=== PATIENT | female | born 1970 | race Caucasian/White ===

== ENCOUNTER 2018-03-11 11:02 | Emergency (ER) | payer OTHER ==
[2018-03-11] MEDS ORDERED: PREDNISONE 20 MG TABLET PO ONE (11:39)
[2018-03-11] MEDS ORDERED: IPRATROPIUM/ALBUTEROL 0.5-2.5 MG/3 ML AMPUL NEB ONE (11:39)
[2018-03-11] MEDS ORDERED: ONDANSETRON 4 MG TAB.RAPDIS PO ONE (11:48)
[2018-03-11] MEDS ORDERED: PROCHLORPERAZINE MALEATE 10 MG TABLET PO ONE (11:48)
[2018-03-11] MEDS ORDERED: IBUPROFEN 600 MG TABLET PO ONE (11:49)
[2018-03-11 12:08] LABS: ABSOLUTE EOSINOPHILS # (AUTO) 0.1 10^3/uL (0.0-0.6); ABSOLUTE LYMPHOCYTES (AUTO) 1.1 10^3/uL (0.5-4.7); ABSOLUTE MONOCYTES (AUTO) 0.5 10^3/uL (0.1-1.4); ABSOLUTE NEUT (AUTO) 3.4 10^3/uL (1.7-8.2); BASOPHILS % (AUTO) 0.7 % (0-2); EOSINOPHILS % (AUTO) 1.1 % (0-6); HEMATOCRIT 44.4 % (36.0-47.0); HEMOGLOBIN 15.5 g/dL (12.0-15.5); LYMPHOCYTES % (AUTO) 21.6 % (13-45); MEAN CORPUSCULAR HEMOGLOBIN 34.7 pg (27.0-33.4); MEAN CORPUSCULAR HGB CONC 34.8 g/dL (32.0-36.0); MEAN CORPUSCULAR VOLUME 100 fl (80-97); MONOCYTES % (AUTO) 9.6 % (3-13); PLATELET COUNT 232 10^3/uL (150-450); RED BLOOD COUNT 4.46 10^6/uL (3.72-5.28); RED CELL DISTRIBUTION WIDTH 14.4 % (11.5-14.0); TOTAL CELLS COUNTED % (AUTO) 100 %
[2018-03-11 12:28] LABS: ANION GAP 11 (5-19); BLOOD UREA NITROGEN 12 mg/dL (7-20); CARBON DIOXIDE 28 mmol/L (22-30); CHLORIDE 103 mmol/L (98-107); GLUCOSE 87 mg/dL (75-110); POTASSIUM 4.7 mmol/L (3.6-5.0); SODIUM 141.9 mmol/L (137-145)
--- NOTE | 2018-03-11 13:03 | RADIOLOGY REPORT (SQ) ---
EXAM DESCRIPTION: CHEST 2 VIEWS COMPLETED DATE/TIME: 03/11/2018 12:51 pm REASON FOR STUDY: sob COMPARISON: None. EXAM PARAMETERS: NUMBER OF VIEWS: two views TECHNIQUE: Digital Frontal and Lateral radiographic views of the chest acquired. RADIATION DOSE: NA LIMITATIONS: none FINDINGS: LUNGS AND PLEURA: No opacities, masses or pneumothorax. No pleural effusion. MEDIASTINUM AND HILAR STRUCTURES: No masses or contour abnormalities. HEART AND VASCULAR STRUCTURES: Heart normal size. No evidence for failure. BONES: No acute findings. HARDWARE: None in the chest. OTHER: No other significant finding. IMPRESSION: NO ACUTE RADIOGRAPHIC FINDING IN THE CHEST. TECHNICAL DOCUMENTATION: JOB ID: [id number] [employer]- All Rights Reserved Reading location - IP/workstation name: [email or web address]
[2018-03-11] MEDS ORDERED: ALBUTEROL SULFATE HFA (90 MCG/PUFF) 8 GM MDI (1 MDI/ER DISP) IH ONE (13:06)
[2018-03-11] MEDS ORDERED: AZITHROMYCIN 250 MG TABLET PO ONE (13:06)
--- NOTE | 2018-03-11 13:08 | ER Document Report ---
ED General - General Chief Complaint: Chest Pain Stated Complaint: CHEST PAIN Time Seen by Provider: 03/11/18 11:32 TRAVEL OUTSIDE OF THE [place] IN LAST 30 DAYS: No - HPI Patient complains to provider of: Right-sided chest pain Notes: Patient coming in for right-sided chest pain shortness of breath cough sputum production is yellow ongoing for last few days. Patient is a smoker. Patient denies any recent travel denies any fevers chills nausea vomiting. Patient denies any cardiac history. Patient resting company upon my evaluation. No recent antibiotics - Related Data Allergies/Adverse Reactions: No Known Allergies Allergy (Verified 03/11/18 11:31) Past Medical History - Social History Smoking Status: Current Every Day Smoker Chew tobacco use (# tins/day): No Frequency of alcohol use: Social Drug Abuse: None Family History: Reviewed & Not Pertinent Patient has suicidal ideation: No Patient has homicidal ideation: No Renal/ Medical History: Denies: Hx Peritoneal Dialysis Review of Systems - Review of Systems Constitutional: No symptoms reported EENT: No symptoms reported Cardiovascular: Chest pain Respiratory: Cough, Short of breath, Sputum, Wheezing Gastrointestinal: No symptoms reported Genitourinary: No symptoms reported Female Genitourinary: No symptoms reported Musculoskeletal: No symptoms reported Skin: No symptoms reported Hematologic/Lymphatic: No symptoms reported Neurological/Psychological: No symptoms reported -: Yes All other systems reviewed and negative Physical Exam - Vital signs Vitals: Temp Pulse Resp BP Pulse Ox 98.8 F 89 18 153/105 H 97 03/11/18 11:26 03/11/18 11:26 03/11/18 11:26 03/11/18 11:26 03/11/18 11:26 Interpretation: Normal - General General appearance: Appears well, Alert - HEENT Head: Normocephalic, Atraumatic Eyes: Normal Pupils: PERRL - Respiratory Respiratory status: No respiratory distress Chest status: Nontender Breath sounds: Rhonchi, Wheezing Chest palpation: Purulent sputum - Cardiovascular Rhythm: Regular Heart sounds: Normal auscultation Murmur: No - Abdominal Inspection: Normal Distension: No distension Bowel sounds: Normal Tenderness: Nontender Organomegaly: No organomegaly - Back Back: Normal, Nontender - Extremities General upper extremity: Normal inspection, Nontender, Normal color, Normal ROM , Normal temperature General lower extremity: Normal inspection, Nontender, Normal color, Normal ROM , Normal temperature, Normal weight bearing. No: Yesenia's sign - Neurological Neuro grossly intact: Yes Cognition: Normal Orientation: AAOx4 Connie Coma Scale Eye Opening: Spontaneous Connie Coma Scale Verbal: Oriented [place] Coma Scale Motor: Obeys Commands [place] Coma Scale Total: 15 Speech: Normal Motor strength normal: LUE, RUE, LLE, RLE Sensory: Normal - Psychological Associated symptoms: Normal affect, Normal mood - Skin Skin Temperature: Warm Skin Moisture: Dry Skin Color: Normal Course - Re-evaluation Re-evalutation: 03/11/18 20:18 Chest x-ray does not show any signs of pneumonia however concerned about underlying bronchitis we will start the patient on azithromycin as she does have a change in her sputum production along with bronchodilator therapy and steroids. Patient states understanding feeling better after breathing treatments here discharged home - Vital Signs Vital signs: Temp Pulse Resp BP Pulse Ox 97.6 F 69 18 161/102 H 99 03/11/18 13:30 03/11/18 13:30 03/11/18 11:26 03/11/18 13:30 03/11/18 13:30 - Laboratory Result Diagrams: 03/11/18 11:46 03/11/18 11:46 Laboratory results interpreted by me: 03/11/18 03/11/18 11:46 11:46 MCV 100 H MCH 34.7 H RDW 14.4 H Est GFR (Non-Af Amer) 59 L Discharge - Discharge Clinical Impression: Bronchitis Condition: Good Disposition: HOME, SELF-CARE Instructions: Bronchitis ([facility]) Additional Instructions: Examination today is consistent with a bronchitis. Chest x-ray does not show any signs of pneumonia. We will treat him symptoms with a bronchodilator call albuterol. Please use the inhaler that we gave you here in ER 2 puffs every 4 hours for the next 5 days. He would also need to be placed on steroids. Please take as directed. Because of the productive cough we will start you on antibiotic called azithromycin. Please take as directed. Please stop smoking Prescriptions: Albuterol Sulfate [Proair HFA Inhalation Aerosol 8.5 gm MDI] 2 puff IH Q4H PRN # 1 mdi PRN Reason: Azithromycin [Zithromax 250 mg Tablet] 250 mg PO ASDIR PRN #4 tablet PRN Reason: Prednisone [Deltasone 20 mg Tablet] 3 tab PO DAILY 5 Days tablet Prochlorperazine Maleate [Compazine] 5 mg PO Q6 #30 tablet Forms: Smoking Cessation Education, Return to Work, Elevated Blood Pressure
--- NOTE | 2018-03-11 13:40 | EKG REPORT ---
SEVERITY:- BORDERLINE ECG - SINUS RHYTHM PROBABLE LEFT ATRIAL ABNORMALITY : Confirmed by: Babatunde Curry MD 11-Mar-2018 13:39:17
[2018-03-11 17:11] VITALS: BP 161/102
== END 2018-03-11 17:08 | disposition home or self-care (01) ==
LOC: ER 11:02
DX: J40 Bronchitis, not specified as acute or chronic (principal); R07.9 Chest pain, unspecified; R06.02 Shortness of breath; F17.200 Nicotine dependence, unspecified, uncomplicated
CPT/HCPCS: 93005; 94640; 99285; 36415; 85025; 80048; 71046; 93010; S0119; J7512; S0183; J3490; J7620